=== PATIENT | female | born 1935 | race Caucasian/White ===

== ENCOUNTER 2020-01-18 19:27 | Emergency (ER) | payer BC, MEDICARE, OTHER ==
[~2020-01-18] VITALS: Ht 162.6 cm; Wt 68.5 kg
[2020-01-18 19:51] VITALS: BP 154/70
--- NOTE | 2020-01-18 19:55 | NUR ---
PT CAME TO THE ED C/O RLE PAIN AND SWELLING X 3 WEEKS. +REDNESS. PT AAOX4, VSS, RESPIRATIONS EVEN AND UNLABORED ON RA W/ NAD NOTED. PT CONNECTED TO THE [employer]ER AND POX.
--- NOTE | 2020-01-18 20:49 | NUR ---
ULTRASOUND IN PROGRESS AT BEDSIDE
--- NOTE | 2020-01-18 21:24 | NUR ---
Patient discharged to home in stable condition. Written and verbal after care instructions given. Patient verbalizes understanding of instruction.pt. ambulatory with a steady gait
== END 2020-01-18 21:25 | disposition home or self-care (01) ==
LOC: ER 19:30
DX: R60.0 Localized edema (principal); L03.115 Cellulitis of right lower limb; I10 Essential (primary) hypertension; Z86.19 Personal history of other infectious and parasitic diseases; Z87.442 Personal history of urinary calculi; Z90.49 Acquired absence of other specified parts of digestive tract; Z98.890 Other specified postprocedural states
CPT/HCPCS: 93971-TC

== ENCOUNTER 2022-05-15 12:48 | Emergency (ER) | payer OTHER ==
[~2022-05-15] VITALS: Ht 162.6 cm; Wt 69.4 kg
[2022-05-15] MEDS ORDERED: TDAP [DIPH/PERTUSSIS/TET] 0.5 ML VIAL IM ONE ×2 (13:00→13:11)
[2022-05-15] MEDS ORDERED: BACI/NEOM/POLY B OINT PKT 1 UDPKT PACKET TP ONE (13:00)
[2022-05-15] MEDS ORDERED: BACI/NEOM/POLY B OINT PKT 1 UDPKT PACKET ONE (13:10)
[2022-05-15] MEDS ORDERED: LIDOCAINE 1% INJ 50 ML MDV IJ ONE (13:30)
--- NOTE | 2022-05-15 13:52 | NUR ---
[id number] home, forehead laceration s/p GLF. pt states UTD w/ TDAP. On room air, breathing evenly and unlabored. Kept comfortable, will continue to monitor accordingly.
--- NOTE | 2022-05-15 13:53 | NUR ---
Dr. Dudley at bedside for eval.
[2022-05-15 15:07] VITALS: BP 131/74
--- NOTE | 2022-05-15 15:07 | NUR ---
Patient discharged to home in stable condition. Written and verbal after care instructions given. Patient verbalizes understanding of instruction.
== END 2022-05-15 15:08 | disposition home or self-care (01) ==
LOC: ER 12:55
DX: S01.81XA Laceration without foreign body of other part of head, initial encounter (principal); I10 Essential (primary) hypertension; Z87.442 Personal history of urinary calculi; Z98.890 Other specified postprocedural states; Z90.49 Acquired absence of other specified parts of digestive tract; W01.0XXA Fall on same level from slipping, tripping and stumbling without subsequent striking against object, initial encounter; Y93.89 Activity, other specified; Y92.89 Other specified places as the place of occurrence of the external cause; Y99.8 Other external cause status
CPT/HCPCS: 70450-TC; 90715

== ENCOUNTER 2024-06-27 16:37 | Inpatient (IN) | payer OTHER ==
[~2024-06-27] VITALS: Ht 165.1 cm; Wt 69.9 kg
[2024-06-27] MEDS ORDERED: METOCLOPRAMIDE HCL 10 MG/2 ML VIAL ONE (17:03)
[2024-06-27] MEDS ORDERED: MECLIZINE HCL 25 MG TABLET ONE (17:03)
[2024-06-27] MEDS: IV NS 0.9% 1,000 ML BAG IV ONE (17:15)
[2024-06-27 17:20] LABS: BASOPHILS % (AUTO) 0.6 % (0.0-2.0); EOSINOPHILS # (AUTO) 0.1 K/uL (0.0-0.7); EOSINOPHILS % (AUTO) 3.7 % (0.0-6.0); HEMATOCRIT 38 % (33-45); HEMOGLOBIN 12.9 g/dL (11.5-14.8); LYMPHOCYTES # (AUTO) 0.9 K/uL (0.8-4.8); LYMPHOCYTES % (AUTO) 25.5 % (20.0-44.0); MEAN CORPUSCULAR HEMOGLOBIN 34 PG (26.0-33.0); MEAN CORPUSCULAR HGB CONC 34 g/dl (31.0-36.0); MEAN CORPUSCULAR VOLUME 101 fL (82-100); MONOCYTES # (AUTO) 0.3 K/uL (0.1-1.30); NEUTROPHILS # (AUTO) 2.2 K/uL (1.8-8.9); NEUTROPHILS % (AUTO) 62.2 % (43.0-81.0); PLATELET COUNT (AUTO) 118 K/uL (150-450); RED BLOOD CELL COUNT(AUTO) 3.75 MIL/uL (4.0-5.2); RED CELL DISTRIBUTION WIDTH 15.2 % (11.5-15.0); WHITE BLOOD COUNT (AUTO) 3.5 K/uL (4.3-11.0)
[2024-06-27] MEDS: METOCLOPRAMIDE HCL 10 MG/2 ML VIAL IV ONE (17:20)
[2024-06-27] MEDS: MECLIZINE HCL 12.5 MG TABLET PO ONE (17:25)
[2024-06-27 17:47] LABS: CALCIUM, SERUM 8.6 mg/dL (8.5-10.1); CREATININE 0.5 mg/dL (0.6-1.3); POTASSIUM 3.9 mmol/L (3.5-5.1)
[2024-06-27] MEDS ORDERED: Z GUARD REMEDY 4 OZ OINT TP PRN (21:00)
[2024-06-27] MEDS ORDERED: ONDANSETRON HCL/PF 4 MG/2 ML VIAL IVP PRN (21:00)
[2024-06-27] MEDS ORDERED: ACETAMINOPHEN 325 MG TABLET PO PRN (21:00)
[2024-06-27] MEDS ORDERED: MECLIZINE HCL 12.5 MG TABLET PO PRN (21:00)
[2024-06-27] MEDS ORDERED: MAG HYDROX/AL HYDROX/SIMETH 30 ML UDC PO PRN (21:00)
[2024-06-27] MEDS ORDERED: MAGNESIUM HYDROXIDE 30 ML UDC PO PRN (21:00)
[2024-06-27 22:55] VITALS: BP 143/77; TEMP 98.2; O2SAT 94
[2024-06-27 23:13] VITALS: BP 143/77; TEMP 98.2; O2SAT 94
[2024-06-27] MEDS: IV NS 0.9% 1,000 ML IV PRN (23:48)
[2024-06-28] VITALS (7 sets, daily range): BP systolic 105–138; BP diastolic 52–85; TEMP 97.5–97.9; O2SAT 94–98
[2024-06-28] MEDS ORDERED: PROP10TA10 PO (00:12)
[2024-06-28] MEDS ORDERED: LEVO50TA8 PO (00:12)
[2024-06-28] MEDS ORDERED: TEMA15CA PO (00:12)
[2024-06-28] MEDS ORDERED: SERT50TA PO (00:12)
[2024-06-28] MEDS ORDERED: AMLO-212 PO (00:12)
[2024-06-28] MEDS: TEMAZEPAM 15 MG CAPSULE PO PRN (00:17)
[2024-06-28 07:01] LABS: BASOPHILS % (AUTO) 0.3 % (0.0-2.0); EOSINOPHILS # (AUTO) 0.1 K/uL (0.0-0.7); EOSINOPHILS % (AUTO) 3.1 % (0.0-6.0); HEMATOCRIT 35 % (33-45); HEMOGLOBIN 11.6 g/dL (11.5-14.8); LYMPHOCYTES # (AUTO) 1.2 K/uL (0.8-4.8); LYMPHOCYTES % (AUTO) 31.2 % (20.0-44.0); MEAN CORPUSCULAR HEMOGLOBIN 34 PG (26.0-33.0); MEAN CORPUSCULAR HGB CONC 33 g/dl (31.0-36.0); MEAN CORPUSCULAR VOLUME 101 fL (82-100); MONOCYTES # (AUTO) 0.3 K/uL (0.1-1.30); MONOCYTES % (AUTO) 9.1 % (2.0-12.0); NEUTROPHILS # (AUTO) 2.1 K/uL (1.8-8.9); NEUTROPHILS % (AUTO) 56.3 % (43.0-81.0); PLATELET COUNT (AUTO) 112 K/uL (150-450); RED BLOOD CELL COUNT(AUTO) 3.45 MIL/uL (4.0-5.2); RED CELL DISTRIBUTION WIDTH 14.5 % (11.5-15.0); WHITE BLOOD COUNT (AUTO) 3.8 K/uL (4.3-11.0)
[2024-06-28 07:28] LABS: ALBUMIN 3.3 g/dL (3.4-5.0); CALCIUM, SERUM 8.3 mg/dL (8.5-10.1); CREATININE 0.6 mg/dL (0.6-1.3); MAGNESIUM 2.1 mg/dL (1.8-2.4); PHOSPHORUS 2.8 mg/dL (2.5-4.9); POTASSIUM 3.4 mmol/L (3.5-5.1)
[2024-06-28 07:32] LABS: THYROID STIMULATING HORMONE 5.78 uIU/mL (0.358-3.74)
[2024-06-28] MEDS: PANTOPRAZOLE 40 MG TABLET.DR PO SCH (08:11)
[2024-06-28] MEDS: POTASSIUM CHLORIDE 20 MEQ TAB.PRT.SR PO SCH (10:06)
[2024-06-28 16:20] LABS: THYROID STIMULATING HORMONE 2.87 uIU/mL (0.358-3.74)
[2024-06-28] MEDS: PROPRANOLOL HCL 10 MG TABLET PO SCH (16:45)
[2024-06-29] VITALS: BP 127/74; TEMP 97.9; O2SAT 96
[2024-06-29 04:00] VITALS: BP_SYST 122; BP_SYST 127; BP_SYST 140; BP_DIAS 63; BP_DIAS 76; BP_DIAS 79; TEMP 97.5; O2SAT 95; O2SAT 96
[2024-06-29] MEDS ORDERED: LEVOTHYROXINE SODIUM 50 MCG TABLET PO SCH (07:30)
[2024-06-29] MEDS: LEVOTHYROXINE SODIUM 75 MCG TABLET PO SCH (07:56)
[2024-06-29 08:00] VITALS: BP 121/76; TEMP 97.9; O2SAT 96
[2024-06-29 08:21] VITALS: BP 121/76
[2024-06-29] MEDS: AMLODIPINE BESYLATE 5 MG TABLET PO SCH (08:21)
[2024-06-29] MEDS: SERTRALINE HCL 50 MG TABLET PO SCH (08:21)
[2024-06-29] MEDS ORDERED: MECL-182 PO (11:50)
[2024-06-29] MEDS ORDERED: LEVO75TA PO (11:50)
[2024-06-30 07:09] LABS: FOLIC ACID 14.8 ng/mL (>3.0)
== END 2024-06-29 14:55 | disposition home or self-care (01) | DRG 149 ==
LOC: ER 16:42 → MED 22:39 → TELE 23:16
PROVIDERS: ADMIT Nurse Practitioner Family; ATTEND Nurse Practitioner Acute Care
DX: H81.13 Benign paroxysmal vertigo, bilateral (principal); E44.1 Mild protein-calorie malnutrition; I73.00 Raynaud's syndrome without gangrene; E86.0 Dehydration; E03.9 Hypothyroidism, unspecified; E87.6 Hypokalemia; E88.09 Other disorders of plasma-protein metabolism, not elsewhere classified; F32.A Depression, unspecified; G47.00 Insomnia, unspecified; I10 Essential (primary) hypertension; Z87.442 Personal history of urinary calculi; Z86.19 Personal history of other infectious and parasitic diseases; R26.81 Unsteadiness on feet; Z68.25 Body mass index [BMI] 25.0-25.9, adult
CPT/HCPCS: 36415; 70450-TC; 80048-TC; 82040-TC; 82607-TC; 83735-TC; 83880; 83921; 84100-TC; 84425; 84443-TC; 84484-TC; 85025-TC; 97110-TC; 97116-TC; 97530-TC; 97535-TC; A4223; G0378; J2765; J7030; J8597